=== PATIENT | male | born 1995 | race African-American/Black ===

== ENCOUNTER 2023-04-28 11:32 | Observation (INO) ==
[2023-04-28] MEDS ORDERED: Sulfamethox/Trimethoprim DS TAB 800/160 mg PO ONE (15:34)
[2023-04-28] MEDS ORDERED: Vancomycin 1,000 MG in NS 0.9% 250 ml 250 ML IVPB ONE (16:39)
[2023-04-28] MEDS ORDERED: Piperacillin/Tazobac ADVAN 3.375 GM in NS 0.9% 100 ml BAG 100 ML IV ONE (16:39)
[2023-04-28] MEDS ORDERED: Morphine 4 MG/ML VIAL (1 ml) IV ONE (16:43)
[2023-04-28] MEDS ORDERED: Ondansetron 4 mg VIAL 2 MG/ML 2 ml VIAL ONE (17:06)
[2023-04-28] MEDS ORDERED: Ondansetron 4 mg VIAL 2 MG/ML 2 ml VIAL IV ONE (17:06)
[2023-04-28 17:16] LABS: ABS Lymphocytes 2.1 10^3/uL (1.0-4.8); ABS Monocytes 0.4 10^3/uL (0.0-1.1); ABS Neutrophils 3.4 10^3/uL (1.5-7.6); ABS Nucleated RBC 0.02 10^3/ul; Eosinophil % 0.5 %; Hematocrit 45.3 % (38-53); Hemoglobin 15.5 g/dL (13.2-16.3); Lymphocyte % 34.4 %; Mean Corpuscular Hemoglobin 30.9 pg (27-33); Mean Corpuscular Hgb Conc 34.3 g/dL (31-36); Mean Corpuscular Volume 89.9 fL (80-97); Nucleated Red Blood Cells % 0.4 /100 WBC (0.0-0.4); Platelet Count 245 10^3/uL (150-450); Red Blood Count 5.03 10^6/uL (4.06-5.63); Red Cell Distribution Width 13.2 % (12-17)
[2023-04-28 17:55] LABS: Albumin/Globulin Ratio 1.1 (1-3); Calcium 9.7 mg/dL (8.6-10.3); Creatinine, Serum 0.73 mg/dL (0.67-1.17); Globulin 3.8 g/dL (2-4); Total Bilirubin 0.4 mg/dL (0.2-1.0); Total Protein 7.8 g/dL (6.4-8.9); eGFR CKD-EPI 127.9 (>60)
[2023-04-28] MEDS ORDERED: Vancomycin per Pharmacy 1 EA NOTE FOLLOW UP SCH (18:00)
[2023-04-28] MEDS ORDERED: Zosyn per Pharmacy NOTE FOLLOW UP SCH (18:00)
[2023-04-28 18:15] LABS: C Reactive Protein 56.46 mg/L (<8.01)
[2023-04-28] MEDS ORDERED: Morphine 2 MG/ML SYRINGE IV PRN (18:21)
[2023-04-28] MEDS: Cefepime 2 GM in Dextrose 2 GM/50 ML BAG IV SCH (18:23)
[2023-04-28 19:24] LABS: Erythrocyte Sed Rate 48 mm/Hr (0-14)
[2023-04-29] MEDS: Vancomycin 1,250 MG in NS 0.9% 250 ml 250 ML IVPB SCH ×2 (03:55→09:56)
[2023-04-29] MEDS: Cefepime 2 GM in Dextrose 2 GM/50 ML BAG IV SCH (05:48)
[2023-04-29 06:15] VITALS: BP 111/60
[2023-04-29] MEDS ORDERED: Vancomycin Trough Check NOTE FOLLOW UP ONE (17:30)
== END 2023-04-29 12:02 | disposition home or self-care (01) ==
LOC: EDHOLD 11:32 → ED 11:32 → SUATTDRO 17:50 → EDHOLD 04-29 07:28
PROVIDERS: ADMIT Internal Medicine; ATTEND Internal Medicine